=== PATIENT | male | born 1985 | race Caucasian/White ===

== ENCOUNTER → 2024-12-26 | Emergency (ER) | payer SELFPAY ==
[~2024-12-26] VITALS: Ht 167.6 cm; Wt 70.0 kg
[~2024-12-26] MED LIST: CEPH-558 PO; IBUP-1492 PO
[2024-12-26] MEDS: KETOROLAC TROMETHAMINE 30 MG/ML VIAL IM ONE (21:56)
[2024-12-26] MEDS: TETANUS/DIPHTHERIA TOXOID [TENIVAC] [7YR+] 0.5 ML SYRINGE IM. ONE (21:59)
[2024-12-26] MEDS: ACETAMINOPHEN 500 MG TABLET PO ONE (22:00)
[2024-12-26 23:20] VITALS: BP 151/115; PULSE 72; RESP 18; TEMP 98.105288; O2SAT 98
== END | disposition still patient (30) ==
LOC: EMS 18:15
DX: S61.215A Laceration without foreign body of left ring finger without damage to nail, initial encounter (principal); W27.8XXA Contact with other nonpowered hand tool, initial encounter; Y93.89 Activity, other specified; Y92.096 Garden or yard of other non-institutional residence as the place of occurrence of the external cause; Y99.8 Other external cause status
CPT/HCPCS: 99284; 90714; 90471; 12001; 96372; J1885